=== PATIENT | male | born 1950 | race Caucasian/White ===

== ENCOUNTER 2017-11-04 12:28 | Emergency (ER) | payer MEDICARE, OTHER ==
[2017-11-04 13:05] VITALS: BP 142/92; PULSE 58; RESP 18; TEMP 97.6
[2017-11-04] MEDS ORDERED: OXYMETAZOLINE 0.05% NASL SPRAY 1 SPRAY BOTTLE NASAL STA (14:17)
[2017-11-04] MEDS ORDERED: LIDOCAINE/EPINEPHR/TETRACAINE 5 ML BOTTLE TOPICAL ONE (14:17)
[2017-11-04] MEDS ORDERED: SILVER NITRATE APPLICATOR 1 EACH STICK..EA. TOPICAL STA (14:34)
--- NOTE | 2017-11-04 14:34 | ED ---
General Adult HPI - General Chief complaint: ENT Stated complaint: nosebleed Time Seen by Provider: 11/04/17 14:08 Source: patient, RN notes reviewed Mode of arrival: ambulatory Limitations: no limitations - History of Present Illness Initial comments: Patient 67-year-old female presented to the emergency room today with a chief complaint of epistaxis. Patient states that over the last several months she's had nosebleeds off and on. Patient states that this morning at approximately 6: 30 began having nosebleed from the right nostril. Patient states she's been able to get the stop at there has started again. He states it is currently stopped bleeding at this time he can feel some clots in it. He is not on any blood thinners. He denies any other complaints or symptoms. Patient denies any recent fever, chills, shortness of breath, chest pain, back pain, abdominal pain , nausea or vomiting, numbness or tingling, headaches or visual changes, or any other complaints. - Related Data Home Medications Medication Instructions Recorded Confirmed Cholecalciferol [Vitamin D3] 5,000 unit PO DAILY 11/04/17 11/04/17 Cider Vinegar [Apple Cider Vinegar] 300 mg PO DAILY 11/04/17 11/04/17 Fish Oil/Dha/Epa [Fish Oil 1,200 1 cap PO DAILY 11/04/17 11/04/17 mg Fish Oil] Magnesium Oxide [Mag-Ox] 250 mg PO DAILY 11/04/17 11/04/17 Multivitamins, Thera [Multivitamin 1 tab PO DAILY 11/04/17 11/04/17 (formulary)] Red Yeast Rice 600 mg PO QID 11/04/17 11/04/17 Super Beta Prostate 1 tab PO BID 11/04/17 11/04/17 Ubidecarenone [Co Q-10] 100 mg PO DAILY 11/04/17 11/04/17 Allergies Allergy/AdvReac Type Severity Reaction Status Date / Time No Known Allergies Allergy Verified 11/04/17 14:27 Review of Systems ROS Statement: Those systems with pertinent positive or pertinent negative responses have been documented in the HPI. ROS Other: All systems not noted in ROS Statement are negative. Past Medical History Past Medical History: No Reported History History of Any Multi-Drug Resistant Organisms: None Reported Past Surgical History: Back Surgery, Hernia Repair Past Psychological History: No Psychological Hx Reported Smoking Status: Current every day smoker Past Alcohol Use History: None Reported Past Drug Use History: None Reported General Exam - General Exam Comments Initial Comments: General: The patient is awake and alert, in no distress, and does not appear acutely ill. Eye: Pupils are equal, round and reactive to light, extra-ocular movements are intact. No nystagmus. There is normal conjunctiva bilaterally. No signs of icterus. Ears, nose, mouth and throat: There are moist mucous membranes and no oral lesions. Patient does have clotted blood in the right nostril. Posterior pharynx clear. Neck: The neck is supple, there is no tenderness or JVD. Musculoskeletal: Normal ROM, no tenderness. Strength 5/5. Sensation intact. Pulses equal bilaterally 2+. Neurological: A&O x 3. CN II-XII intact, There are no obvious motor or sensory deficits. Coordination appears grossly intact. Speech is normal. Skin: Skin is warm and dry and no rashes or lesions are noted. Psychiatric: Cooperative, appropriate mood & affect, normal judgment. Limitations: no limitations Course Vital Signs 11/04/17 13:02 Temperature 97.6 F Pulse Rate 58 L Respiratory 18 Rate Blood Pressure 142/92 O2 Sat by Pulse 97 Oximetry Procedures - Procedures Initial comment: Patient is given Afrin which she did 2 sprays in the right nostril. Patient also had a lidocaine epinephrine tetracaine mixture placed on a cotton ball and placed in the right nostril. This was left in for approximately 30 minutes. This was removed. Was able to visualize small anterior nosebleed in for on the medial aspect. Silver nitrate stick was used to cauterize area. Patient tolerated well. Disposition Clinical Impression: Epistaxis Disposition: HOME SELF-CARE Condition: Good Instructions: Nosebleed (ED) Additional Instructions: Please follow-up with ENT as discussed. Please use nasal clamp bleeding recurs and levodopa 20 minutes. If Uncontrolled at home please return to the emergency room. Is patient prescribed a controlled substance at d/c from ED?: No Referrals: Aleja Reese MD [Primary Care Provider] - 1-2 days Chandra Silverman DO [Doctor of Osteopathic Medicine] - 1-2 days Time of Disposition: 15:29
== END 2017-11-04 15:00 | disposition home or self-care (01) ==
LOC: EC 12:28
DX: R04.0 Epistaxis (principal); F17.200 Nicotine dependence, unspecified, uncomplicated; Z79.899 Other long term (current) drug therapy
CPT/HCPCS: 30901; 99283

== ENCOUNTER 2017-11-04 19:35 | Emergency (ER) | payer MEDICARE, OTHER ==
[2017-11-04 19:39] VITALS: RESP 18
[2017-11-04] MEDS ORDERED: LIDOCAINE/EPINEPHR/TETRACAINE 5 ML BOTTLE TOPICAL ONE (19:47)
[2017-11-04] MEDS ORDERED: OXYMETAZOLINE 0.05% NASL SPRAY 1 SPRAY BOTTLE NASAL STA (19:47)
--- NOTE | 2017-11-04 20:19 | ED ---
General Adult HPI - General Chief complaint: ENT Stated complaint: Bloody nose Time Seen by Provider: 11/04/17 19:47 Source: patient, RN notes reviewed Mode of arrival: wheelchair Limitations: no limitations - History of Present Illness Initial comments: Patient 67-year-old male presented to the emergency room today with a chief complaint of epistaxis. Patient does admit that been dealing nosebleeds on and off over the last several months was seen here in emergency room earlier today for epistaxis. Did have cauterization. States he was at dinner. States that afterwards he sneezed and bleeding recurred. Patient states all the bleeding is on the right side of his nose. He denies any other complaints or symptoms. - Related Data Home Medications Medication Instructions Recorded Confirmed Cholecalciferol [Vitamin D3] 5,000 unit PO DAILY 11/04/17 11/04/17 Cider Vinegar [Apple Cider Vinegar] 300 mg PO DAILY 11/04/17 11/04/17 Fish Oil/Dha/Epa [Fish Oil 1,200 1 cap PO DAILY 11/04/17 11/04/17 mg Fish Oil] Magnesium Oxide [Mag-Ox] 250 mg PO DAILY 11/04/17 11/04/17 Multivitamins, Thera [Multivitamin 1 tab PO DAILY 11/04/17 11/04/17 (formulary)] Red Yeast Rice 600 mg PO QID 11/04/17 11/04/17 Super Beta Prostate 1 tab PO BID 11/04/17 11/04/17 Ubidecarenone [Co Q-10] 100 mg PO DAILY 11/04/17 11/04/17 Allergies Allergy/AdvReac Type Severity Reaction Status Date / Time No Known Allergies Allergy Verified 11/04/17 19:36 Review of Systems ROS Statement: Those systems with pertinent positive or pertinent negative responses have been documented in the HPI. ROS Other: All systems not noted in ROS Statement are negative. Past Medical History Past Medical History: No Reported History History of Any Multi-Drug Resistant Organisms: None Reported Past Surgical History: Back Surgery, Hernia Repair Past Psychological History: No Psychological Hx Reported Smoking Status: Current every day smoker Past Alcohol Use History: None Reported Past Drug Use History: None Reported General Exam - General Exam Comments Initial Comments: General: The patient is awake and alert, in no distress, and does not appear acutely ill. Eye: Pupils are equal, round and reactive to light, extra-ocular movements are intact. No nystagmus. There is normal conjunctiva bilaterally. No signs of icterus. Ears, nose, mouth and throat: There are moist mucous membranes and no oral lesions. Active bleeding coming from the right nostril. Neck: The neck is supple. Musculoskeletal: Normal ROM, no tenderness. Strength 5/5. Sensation intact. Pulses equal bilaterally 2+. Neurological: A&O x 3. CN II-XII intact, There are no obvious motor or sensory deficits. Coordination appears grossly intact. Speech is normal. Skin: Skin is warm and dry and no rashes or lesions are noted. Psychiatric: Cooperative, appropriate mood & affect, normal judgment. Limitations: no limitations Course Vital Signs 11/04/17 19:36 Temperature 97.9 F Pulse Rate 114 H Respiratory 18 Rate Blood Pressure 165/81 O2 Sat by Pulse 95 Oximetry Procedures - Procedures Initial comment: Patient did have Afrin spray to the right nostril. Patient was also given LET . Patient had this left in for approximately 5 minutes. This was taken out no bleeding at the time. Patient and had Murocel packing placed in the right nostril. Patient has been observed for another 20 minutes no rebleeding. Posterior pharynx clear. Medical Decision Making - Medical Decision Making Patient had packing placed to the right nostril. He is advised follow-up ENT in 2 days. Advised return for any other concerns. Disposition Clinical Impression: Epistaxis Disposition: HOME SELF-CARE Condition: Good Instructions: Nosebleed (ED) Additional Instructions: Please leave packing in place until follow-up with ENT in 2 days. Please return emergency room if any symptoms increase worsen appropriate concerns. Is patient prescribed a controlled substance at d/c from ED?: No Referrals: Aleja Reese MD [Primary Care Provider] - 1-2 days Chandra Silverman DO [Doctor of Osteopathic Medicine] - 1-2 days Time of Disposition: 21:03
[2017-11-04 21:11] VITALS: BP 143/82; PULSE 70; TEMP 98.4
== END 2017-11-04 21:11 | disposition home or self-care (01) ==
LOC: EC 19:35
DX: R04.0 Epistaxis (principal); F17.200 Nicotine dependence, unspecified, uncomplicated; Z79.899 Other long term (current) drug therapy
CPT/HCPCS: 30901; 99283

== ENCOUNTER 2019-11-06 08:27 | Day surgery (SDC) | payer MEDICARE, OTHER ==
[2019-11-02 15:39] VITALS: BMI 24.3
[~2019-11-06 08:27] MED LIST: LACTATED RINGERS 1,000 ML IV SCH
[2019-11-06 09:11] VITALS: TEMP 97.7
[2019-11-06] MEDS ORDERED: PROPOFOL 10 MG/ML 20 ML VIAL IV ONE (09:46)
[2019-11-06] MEDS ORDERED: LIDOCAINE 1% INJ 10MG/ML (20 ML MDV) ONE (09:46)
--- NOTE | 2019-11-06 10:15 | P.PCN ---
Date of Procedure: 11/06/19 Description of Procedure: BRIEF HISTORY: Patient is a 69-year-old male presenting for outpatient colonoscopy for personal history of colon polyps. Reports a remote history of prior colonoscopy. Does report polyps denies any change in bowel habits, blood per rectum, abdominal pain or family history of colon cancer. PROCEDURE PERFORMED: Colonoscopy with polypectomy. PREOPERATIVE DIAGNOSIS: Personal history of colon polyps, remote history of prior colonoscopy with polyps removed per patient report. ESTIMATED BLOOD LOSS: Minimal. IV sedation per Anesthesia. PROCEDURE: After informed consent was obtained, the patient, was brought into the endoscopy unit. IV sedation was administered by Anesthesia under continuous monitoring. Digital rectal examination was normal. Initially the Olympus CF-190 flexible video colonoscope was then inserted in the rectum, gradually advanced into the cecum without any difficulty. Careful examination was performed as the scope was gradually being withdrawn. Ileocecal valve and the appendiceal orifice were visualized and appeared normal. Prep was excellent. Mucosa of the cecum, ascending colon, transverse colon, descending colon, sigmoid colon, and rectum appeared normal. 2 diminutive polyps measuring 2 mm in size removed from the rectum and descending colon with cold forcep polypectomy. A few scattered diverticula noted in the sigmoid colon. Retroflexion was performed in the rectum and no lesions were seen, low-grade internal hemorrhoids noted. The patient tolerated the procedure well. IMPRESSION: 2 diminutive polyps removed with cold forcep polypectomy from the descending colon and rectum. Low-grade internal hemorrhoids. Mild sigmoid diverticulosis. RECOMMENDATIONS: Findings of this examination were discussed with the patient. Okay to resume diet. Okay to resume medications. Await pathology from polypectomies. Would recommend repeat colonoscopy in 7 years, pending pathology from polypectomies.
[2019-11-06 10:38] VITALS: BP 112/68; PULSE 71; RESP 16
== END 2019-11-06 11:11 | disposition home or self-care (01) ==
LOC: ORWHC2ENDO 08:27
PROVIDERS: ATTEND Internal Medicine
DX: Z12.11 Encounter for screening for malignant neoplasm of colon (principal); D12.4 Benign neoplasm of descending colon; D12.8 Benign neoplasm of rectum; K57.30 Diverticulosis of large intestine without perforation or abscess without bleeding; K64.8 Other hemorrhoids; I10 Essential (primary) hypertension; Z72.0 Tobacco use; Z86.010 Personal history of colon polyps; Z98.890 Other specified postprocedural states; Z79.899 Other long term (current) drug therapy; Z79.82 Long term (current) use of aspirin
CPT/HCPCS: 45380; 88305; J2001; J2704